=== PATIENT | male | born 1950 | race Caucasian/White ===

== ENCOUNTER → 2018-01-05 | Outpatient (CLI) | payer OTHER ==
[~2018-01-05] MED LIST: CANA100T PO; CRESTOR20 MG PO; GLUCOPHAGE1000 MG PO; HCTZ 25MG TAB25 MG PO; JANUVIA 100MG100 MG PO; NORVASC 10MG10 MG PO; PRINIVIL20 MG PO; WELCHOL 625MG625 MG PO
== END ==
LOC: COL.RAD 08:03
DX: K76.0 Fatty (change of) liver, not elsewhere classified (principal); K55.1 Chronic vascular disorders of intestine; I70.1 Atherosclerosis of renal artery; Z68.29 Body mass index [BMI] 29.0-29.9, adult
CPT/HCPCS: Q9967